=== PATIENT | female | born 1970 | race Caucasian/White ===

== ENCOUNTER 2018-04-15 18:44 | Emergency (ER) | payer MEDICAID, OTHER ==
[~2018-04-15] VITALS: Ht 157.5 cm; Wt 59.1 kg
[~2018-04-15 18:44] MED LIST: DIVA500T35 PO; LITH300C3 PO; RISP1 PO
[2018-04-15 19:10] LABS: BASOPHILS % (AUTO) 0.7 % (0.0-2.0); HEMATOCRIT 39.1 % (36-46); HEMOGLOBIN 13.2 g/dL (12.0-16.0); LYMPHOCYTES # (AUTO) 2.5 K/uL (1.0-4.8); LYMPHOCYTES % (AUTO) 18.8 % (22.0-44.0); MEAN CORPUSCULAR HEMOGLOBIN 29.9 pg (26.0-34.0); MEAN CORPUSCULAR HGB CONC 33.8 G/dL (31.0-37.0); MEAN CORPUSCULAR VOLUME 88 fL (80-100); MONOCYTES # (AUTO) 0.9 K/uL (0.1-1.0); MONOCYTES % (AUTO) 6.4 % (2.0-9.0); NEUTROPHILS # (AUTO) 9.5 K/uL (1.8-7.7); NEUTROPHILS % (AUTO) 71.1 % (40.0-70.0); PLATELET COUNT (AUTO) 347 K/uL (150-450); RED BLOOD CELL COUNT(AUTO) 4.42 MIL/uL (4.00-5.20); RED CELL DISTRIBUTION WIDTH 13.9 % (11.5-14.5)
[2018-04-15 19:19] LABS: ANION GAP 12 mmol/L (8-16); CALCIUM, TOTAL 8.3 mg/dL (8.8-10.5); CARBON DIOXIDE 25 mmol/L (22-29); CHLORIDE 107 mmol/L (98-107); CREATININE 0.85 mg/dL (0.60-1.30); GLOMERULAR FILTR. RATE CALC > 60 mL/min (>60); GLUCOSE,RANDOM 98 mg/dL (70-110); POTASSIUM 3.3 mmol/L (3.5-5.1); SODIUM SERUM 144 mmol/L (136-145); UREA NITROGEN, BLOOD 11 mg/dL (7-18)
[2018-04-15 19:25] LABS: ALANINE AMINOTRANSFERASE 35 U/L (12-78); ALBUMIN 3.7 g/dL (3.4-5.0); ALKALINE PHOSPHATASE 68 U/L (46-116); ASPARTATE AMINOTRANSFERASE 24 U/L (15-37); BILIRUBIN,TOTAL 0.9 mg/dL (0.1-1.0); TOTAL PROTEIN, SERUM 6.8 g/dL (6.4-8.2)
[2018-04-15 19:36] LABS: LITHIUM 0.27 mmol/L (0.60-1.20)
[2018-04-15] MEDS ORDERED: LITHIUM CARBONATE 300 MG CAPSULE PO ONE (19:45)
[2018-04-15 19:49] LABS: VALPROIC ACID 5 mcg/mL (50-100)
[2018-04-15 20:48] VITALS: BP 140/79
== END 2018-04-15 20:53 | disposition home or self-care (01) ==
LOC: EMS 18:45
DX: F41.9 Anxiety disorder, unspecified (principal); F31.9 Bipolar disorder, unspecified; F17.210 Nicotine dependence, cigarettes, uncomplicated; Z91.14 Patient's other noncompliance with medication regimen; Z79.899 Other long term (current) drug therapy
CPT/HCPCS: 36415; 80053; 80164; 80178; 84703; 85025; 99284; G0480

== ENCOUNTER 2019-12-09 08:47 | Inpatient (IN) | payer MEDICAID, OTHER ==
[~2019-12-09] VITALS: Ht 157.5 cm; Wt 75.5 kg
[~2019-12-09 08:47] MED LIST changes: +CHOL400T56 PO; -DIVA500T35 PO; -RISP1 PO
[2019-12-09] MEDS ORDERED: HYD50 PO (09:08)
[2019-12-09] MEDS ORDERED: HALO5TAB2 PO (09:08)
[2019-12-09] MEDS ORDERED: BUPR75 PO (09:08)
[2019-12-09] MEDS ORDERED: LORazepam 2 MG/ML VIAL IM ONE (10:00)
[2019-12-09] MEDS ORDERED: DiphenhydrAMINE HCL 50 MG/ML VIAL IM ONE (10:00)
[2019-12-09] MEDS ORDERED: HALOPERIDOL LACTATE 5 MG/ML VIAL IM ONE (10:00)
[2019-12-09 13:56] VITALS: BP 137/74
[2019-12-09] MEDS ORDERED: MAG HYDROX/AL HYDROX/SIMETH ES 30 ML SUSPENSION UDCUP PO PRN (21:30)
[2019-12-09] MEDS ORDERED: ACETAMINOPHEN 325 MG TABLET PO PRN (21:30)
[2019-12-09] MEDS ORDERED: GuaiFENesin/D-METHORPHAN [SUGAR-FREE] 200-20MG/10 ML SYRUP UDCUP PO PRN (21:30)
[2019-12-09] MEDS ORDERED: LOPERAMIDE HCL 2 MG CAPSULE PO PRN (21:30)
[2019-12-09] MEDS ORDERED: MAGNESIUM HYDROXIDE SUSPENSION 30 ML UDCUP PO PRN (21:30)
[2019-12-09] MEDS ORDERED: DOCUSATE SODIUM 100 MG CAPSULE PO PRN (21:30)
[2019-12-09] MEDS ORDERED: CloNIDine HCL 0.1 MG TABLET PO PRN (21:30)
[2019-12-09] MEDS ORDERED: PETROLATUM,WHITE 28 GM JELLY TP PRN (21:30)
[2019-12-09] MEDS ORDERED: ONDANSETRON HCL 4 MG TABLET PO PRN (21:30)
[2019-12-09] MEDS ORDERED: ALBUTEROL SULFATE HFA 90 MCG/PUFF 8 GM INHALER IH PRN (21:30)
[2019-12-10 07:48] LABS: AMPHET/METH SCREEN,URINE NEGATIVE (NEGATIVE); BARBITURATE SCREEN, URINE NEGATIVE (NEGATIVE); BENZODIAZEPINES SCREEN,URINE NEGATIVE (NEGATIVE); CANNABINOID SCREEN,URINE POSITIVE (NEGATIVE); COCAINE SCREEN,URINE NEGATIVE (NEGATIVE); METHADONE SCREEN, URINE NEGATIVE (NEGATIVE); OPIATE SCREEN,URINE NEGATIVE (NEGATIVE)
[2019-12-10 07:51] LABS: APPEARANCE,URINE CLEAR (CLEAR); BILIRUBIN,URINE NEGATIVE (NEGATIVE); GLUCOSE, URINE (UA) NEGATIVE (NEGATIVE); KETONES,URINE TRACE mg/dL (NEGATIVE); LEUKOCYTE ESTERASE ,URINE NEGATIVE (NEGATIVE); NITRATE,URINE NEGATIVE (NEGATIVE); OCCULT BLOOD,URINE NEGATIVE (NEGATIVE); PROTEIN,URINE NEGATIVE (NEGATIVE); UROBILINOGEN,URINE 0.2 mg/dL (<=1.0)
[2019-12-10 07:59] LABS: PHENCYCLIDINE SCREEN,URINE NEGATIVE (NEGATIVE)
[2019-12-10] MEDS ORDERED: BUPR-93 PO (13:03)
[2019-12-10] MEDS: BuPROPion HCL XL 150 MG ER TABLET PO SCH (16:21)
[2019-12-10] MEDS: IBUPROFEN 400 MG TABLET PO PRN (18:05)
[2019-12-10] MEDS: NICOTINE 14 MG/24 HOUR PATCH TD PRN (18:30)
[2019-12-10] MEDS: HALOPERIDOL 5 MG TABLET PO SCH (19:46)
[2019-12-10] MEDS ORDERED: LORazepam 2 MG/ML VIAL ONE (20:38)
[2019-12-10] MEDS ORDERED: HALOPERIDOL LACTATE 5 MG/ML VIAL ONE (20:39)
[2019-12-10] MEDS ORDERED: DiphenhydrAMINE HCL 50 MG/ML VIAL ONE (20:39)
[2019-12-10] MEDS ORDERED: DiphenhydrAMINE HCL 50 MG/ML VIAL IM ONE (20:45)
[2019-12-10] MEDS ORDERED: LORazepam 2 MG/ML VIAL IM ONE (20:45)
[2019-12-10] MEDS ORDERED: HALOPERIDOL LACTATE 5 MG/ML VIAL IM ONE (20:45)
[2019-12-11 09:19] LABS: BASOPHILS % (AUTO) 0.9 % (0.0-2.0); EOSINOPHILS % (AUTO) 7.2 % (1.0-6.0); HEMATOCRIT 41.5 % (36-46); HEMOGLOBIN 13.6 g/dL (12.0-16.0); LYMPHOCYTES # (AUTO) 1.7 K/uL (1.0-4.8); LYMPHOCYTES % (AUTO) 29.1 % (22.0-44.0); MEAN CORPUSCULAR HEMOGLOBIN 28.8 pg (26.0-34.0); MEAN CORPUSCULAR HGB CONC 32.8 G/dL (31.0-37.0); MEAN CORPUSCULAR VOLUME 88 fL (80-100); MONOCYTES # (AUTO) 0.6 K/uL (0.1-1.0); MONOCYTES % (AUTO) 9.9 % (2.0-9.0); NEUTROPHILS # (AUTO) 3.1 K/uL (1.8-7.7); NEUTROPHILS % (AUTO) 52.9 % (40.0-70.0); PLATELET COUNT (AUTO) 282 K/uL (150-450); RED BLOOD CELL COUNT(AUTO) 4.73 MIL/uL (4.00-5.20); RED CELL DISTRIBUTION WIDTH 14.2 % (11.5-14.5)
[2019-12-11 09:42] LABS: HEMOGLOBIN A1C 5.7 % (4.5-6.2)
[2019-12-11 09:52] LABS: ALANINE AMINOTRANSFERASE 16 U/L (12-78); ALBUMIN 3.2 g/dL (3.4-5.0); ALKALINE PHOSPHATASE 67 U/L (46-116); ANION GAP 8 mmol/L (8-16); ASPARTATE AMINOTRANSFERASE 9 U/L (15-37); BILIRUBIN,TOTAL 0.2 mg/dL (0.1-1.0); CALCIUM, TOTAL 8.8 mg/dL (8.8-10.5); CARBON DIOXIDE 27 mmol/L (22-29); CHLORIDE 106 mmol/L (98-107); CREATININE 0.66 mg/dL (0.60-1.30); GLOMERULAR FILTR. RATE CALC > 60 mL/min (>60); GLUCOSE,RANDOM 103 mg/dL (70-110); POTASSIUM 4.4 mmol/L (3.5-5.1); SODIUM SERUM 141 mmol/L (136-145); THYROID STIMULATING HORMONE 0.66 uIU/mL (0.36-3.74); TOTAL PROTEIN, SERUM 6.2 g/dL (6.4-8.2); UREA NITROGEN, BLOOD 9 mg/dL (7-18)
[2019-12-11 09:53] VITALS: BP 138/77
[2019-12-11] MEDS: HALOPERIDOL 5 MG TABLET PO SCH ×2 (10:19→17:16)
[2019-12-11] MEDS: HALOPERIDOL 5 MG TABLET PO PRN (10:19)
[2019-12-11] MEDS: BuPROPion HCL XL 150 MG ER TABLET PO SCH (10:19)
[2019-12-11] MEDS: NICOTINE 14 MG/24 HOUR PATCH TD PRN (10:19)
[2019-12-11] MEDS: LORazepam 2 MG TABLET PO PRN (10:19)
[2019-12-11 10:30] LABS: CHOL/HDL RATIO 2.9 (3.9-5.7); CHOLESTEROL 140 mg/dL (131-200); HDL CHOLESTEROL 49 mg/dL (40-60); LDL CHOL (CALC.) 79 mg/dL (0-130); TRIGLYCERIDES 61 mg/dL (15-150)
[2019-12-11 16:34] VITALS: BP 112/72
[2019-12-11 23:53] VITALS: BP 144/76
[2019-12-12] MEDS: HALOPERIDOL 5 MG TABLET PO SCH (07:54)
[2019-12-12] MEDS: BuPROPion HCL XL 150 MG ER TABLET PO SCH (08:39)
[2019-12-12] MEDS: LORazepam 2 MG TABLET PO PRN (10:12)
[2019-12-12 12:11] VITALS: BP 118/69
[2019-12-12] MEDS: HALOPERIDOL 10 MG TABLET PO SCH (16:16)
[2019-12-12 18:02] VITALS: BP 120/71
[2019-12-13] MEDS: IBUPROFEN 400 MG TABLET PO PRN (04:35)
[2019-12-13] MEDS: LORazepam 2 MG TABLET PO PRN ×3 (04:57→21:14)
[2019-12-13] MEDS: HALOPERIDOL 10 MG TABLET PO SCH (08:25)
[2019-12-13] MEDS: BuPROPion HCL XL 150 MG ER TABLET PO SCH ×2 (08:25→09:58)
[2019-12-13 09:14] VITALS: BP 114/72
[2019-12-13] MEDS: ARIPiprazole 10 MG TABLET PO SCH ×2 (10:45→12:00)
[2019-12-13] MEDS: NICOTINE 14 MG/24 HOUR PATCH TD PRN (11:00)
[2019-12-13 16:21] VITALS: BP 117/82
[2019-12-14] MEDS: BuPROPion HCL XL 150 MG ER TABLET PO SCH (09:22)
[2019-12-14] MEDS: ARIPiprazole 10 MG TABLET PO SCH (09:22)
[2019-12-14] MEDS: LORazepam 2 MG TABLET PO PRN ×2 (09:22→13:40)
[2019-12-14] MEDS: NICOTINE 14 MG/24 HOUR PATCH TD PRN (11:31)
[2019-12-14 13:27] VITALS: BP 122/89
[2019-12-14] MEDS: HALOPERIDOL 5 MG TABLET PO PRN (13:40)
[2019-12-14 16:00] VITALS: BP 127/76
[2019-12-15] MEDS: NICOTINE 14 MG/24 HOUR PATCH TD PRN (08:21)
[2019-12-15] MEDS: LORazepam 2 MG TABLET PO PRN ×2 (08:21→17:54)
[2019-12-15] MEDS: BuPROPion HCL XL 150 MG ER TABLET PO SCH (08:21)
[2019-12-15] MEDS: HALOPERIDOL 5 MG TABLET PO PRN (08:21)
[2019-12-15] MEDS ORDERED: ARIPiprazole 15 MG TABLET PO SCH (09:00)
[2019-12-15 12:56] VITALS: BP 127/68
[2019-12-15 18:13] VITALS: BP 120/67
[2019-12-16] MEDS: NICOTINE 14 MG/24 HOUR PATCH TD PRN (08:04)
[2019-12-16] MEDS: LORazepam 2 MG TABLET PO PRN (08:05)
[2019-12-16] MEDS: BuPROPion HCL XL 150 MG ER TABLET PO SCH (08:05)
[2019-12-16] MEDS ORDERED: ARIPiprazole 10 MG TABLET PO SCH (09:00)
[2019-12-16 09:45] VITALS: BP 127/66
[2019-12-17 08:09] VITALS: BP 107/81
[2019-12-17] MEDS: LORazepam 2 MG TABLET PO PRN ×2 (08:27→16:12)
[2019-12-17] MEDS ORDERED: ARIPiprazole 15 MG TABLET PO SCH (09:00)
[2019-12-17] MEDS: BuPROPion HCL XL 150 MG ER TABLET PO SCH ×2 (09:00→14:03)
[2019-12-17] MEDS: NICOTINE 14 MG/24 HOUR PATCH TD PRN (14:02)
[2019-12-17] MEDS: RisperiDONE 2 MG TABLET PO SCH (16:12)
[2019-12-17] MEDS: BENZTROPINE MESYLATE 1 MG TABLET PO SCH (16:12)
[2019-12-17 16:21] VITALS: BP 108/84
[2019-12-18] MEDS: ZOLPIDEM TARTRATE 10 MG TABLET PO PRN (00:22)
[2019-12-18] MEDS: LORazepam 2 MG TABLET PO PRN (06:01)
[2019-12-18] MEDS: BuPROPion HCL XL 150 MG ER TABLET PO SCH (08:30)
[2019-12-18] MEDS: RisperiDONE 2 MG TABLET PO SCH ×2 (08:30→16:30)
[2019-12-18] MEDS: BENZTROPINE MESYLATE 1 MG TABLET PO SCH ×2 (08:30→16:30)
[2019-12-18 08:47] VITALS: BP 104/73
[2019-12-18] MEDS: NICOTINE 14 MG/24 HOUR PATCH TD PRN (14:04)
[2019-12-18 16:45] VITALS: BP 129/88
[2019-12-19] MEDS: ZOLPIDEM TARTRATE 10 MG TABLET PO PRN (01:44)
[2019-12-19 01:45] VITALS: BP 116/71
[2019-12-19] MEDS: BuPROPion HCL XL 150 MG ER TABLET PO SCH (08:24)
[2019-12-19] MEDS: RisperiDONE 2 MG TABLET PO SCH (08:25)
[2019-12-19] MEDS: BENZTROPINE MESYLATE 1 MG TABLET PO SCH (08:25)
[2019-12-19 09:46] VITALS: BP 116/78
[2019-12-19] MEDS ORDERED: RISP2 PO (11:31)
[2019-12-19] MEDS ORDERED: BENZ1TAB10 PO (11:32)
== END 2019-12-19 12:15 | disposition home or self-care (01) | DRG 885 ==
LOC: EMS 08:49 → 3EC 11:51
PROVIDERS: ADMIT Psychiatry & Neurology Child & Adolescent Psychiatry; ATTEND Psychiatry & Neurology Psychiatry
DX: F25.0 Schizoaffective disorder, bipolar type (principal); R45.851 Suicidal ideations; Z59.0 Homelessness; I10 Essential (primary) hypertension; F41.9 Anxiety disorder, unspecified; F17.200 Nicotine dependence, unspecified, uncomplicated; F10.10 Alcohol abuse, uncomplicated; Z91.19 Patient's noncompliance with other medical treatment and regimen; R00.0 Tachycardia, unspecified; F19.10 Other psychoactive substance abuse, uncomplicated
CPT/HCPCS: 83036; 84443; 99291; J1200; J1630; J2060; Q0162